=== PATIENT | female | born 1980 | race Caucasian/White ===

== ENCOUNTER 2022-02-25 14:32 | Outpatient (CLI) | payer OTHER ==
[2022-02-26 15:47] LABS: SARS-CoV-2 PCR by NAA Not Detected (NotDetected)
== END 2022-02-25 14:33 | disposition home or self-care (01) ==
LOC: CSHLAB 14:32
PROVIDERS: ATTEND Surgery
DX: Z20.822 Contact with and (suspected) exposure to COVID-19 (principal)
CPT/HCPCS: U0003; U0005

== ENCOUNTER 2022-03-01 08:41 | Outpatient (CLI) | payer OTHER | END 2022-03-01 08:42 | disposition home or self-care (01) | LOC: CSHRAD 08:41 | PROVIDERS: ATTEND Surgery | DX: K21.9 Gastro-esophageal reflux disease without esophagitis (principal); K22.2 Esophageal obstruction | CPT/HCPCS: 74220 ==